=== PATIENT | male | born 1950 | race Caucasian/White ===

== ENCOUNTER → 2016-12-15 | Outpatient (CLI) | payer MEDICARE, OTHER ==
[2016-12-15 08:59] LABS: ALANINE AMINOTRANSFERASE 29 U/L (21-72); ALBUMIN 4.4 g/dL (3.5-5.0); ALKALINE PHOSPHATASE 72 U/L (38-126); ANION GAP 10 (5-19); ASPARTATE AMINO TRANSFERASE 22 U/L (17-59); BILIRUBIN,DIRECT 0.1 mg/dL (0.0-0.4); BILIRUBIN,TOTAL 0.8 mg/dL (0.2-1.3); BLOOD UREA NITROGEN 21 mg/dL (7-20); CALCIUM 10.3 mg/dL (8.4-10.2); CARBON DIOXIDE 31 mmol/L (22-30); CHLORIDE 103 mmol/L (98-107); CHOLESTEROL 143.87 mg/dL (0-200); CREATININE RESULT 0.91 mg/dL (0.52-1.25); Direct HDL 51 mg/dL (>40); GLUCOSE 122 mg/dL (75-110); POTASSIUM 4.9 mmol/L (3.6-5.0); SODIUM 144.1 mmol/L (137-145); TRIGLYCERIDES 57 mg/dL (<150)
[2016-12-15 09:10] LABS: DIRECT LDL 73 mg/dL (<100)
== END ==
LOC: OD 08:01
PROVIDERS: ATTEND Internal Medicine Cardiovascular Disease
DX: E78.00 Pure hypercholesterolemia, unspecified (principal); Z79.899 Other long term (current) drug therapy
CPT/HCPCS: 36415; 80048; 80061; 80076

== ENCOUNTER → 2017-03-17 | Outpatient (CLI) | payer MEDICARE, OTHER ==
[2017-03-17 10:06] LABS: ANION GAP 11 (5-19); BLOOD UREA NITROGEN 26 mg/dL (7-20); CALCIUM 9.9 mg/dL (8.4-10.2); CARBON DIOXIDE 27 mmol/L (22-30); CHLORIDE 101 mmol/L (98-107); CHOLESTEROL 158.32 mg/dL (0-200); CREATININE RESULT 0.88 mg/dL (0.52-1.25); Direct HDL 45 mg/dL (>40); GLUCOSE 101 mg/dL (75-110); POTASSIUM 4.8 mmol/L (3.6-5.0); SODIUM 139.1 mmol/L (137-145); TRIGLYCERIDES 131 mg/dL (<150)
[2017-03-17 10:17] LABS: DIRECT LDL 86 mg/dL (<100)
== END ==
LOC: OD 08:35
PROVIDERS: ATTEND Internal Medicine Cardiovascular Disease
DX: R73.01 Impaired fasting glucose (principal); E78.00 Pure hypercholesterolemia, unspecified; Z79.899 Other long term (current) drug therapy
CPT/HCPCS: 36415; 80048; 80061; 83036

== ENCOUNTER → 2017-04-10 | Outpatient (CLI) | payer MEDICARE, OTHER | LOC: RAD 15:50 | PROVIDERS: ATTEND Orthopaedic Surgery | DX: M25.512 Pain in left shoulder (principal); Z53.8 Procedure and treatment not carried out for other reasons ==

== ENCOUNTER → 2017-05-02 | Day surgery (SDC) | payer MEDICARE, OTHER ==
--- NOTE | 2017-05-02 15:10 | RADIOLOGY REPORT (SQ) ---
EXAM DESCRIPTION: FLUORO/NEEDLE PLACEMENT; ARTHRO SHOULDER INJECTION COMPLETED DATE/TIME: 05/02/2017 1:21 pm REASON FOR STUDY: IMPINGEMENT SYDROME OF LEFT SHOULDER M75.42 IMPINGEMENT SYNDROME OF LEFT SHOULDER COMPARISON: None. FLUOROSCOPY TIME: 18 seconds 2 digital radiographic images saved to PACS. LIMITATIONS: None. PROCEDURE: Procedure, risks, benefits and alternative explained to patient who then gave written con sent. The posterior left shoulder was marked and a time-out was called for correct marking verificat ion. Posterior entry site marked using fluoroscopic guidance. Shoulder prepped and draped using virgie rile technique. Local anesthesia achieved using 1% lidocaine injection. 22 gauge spinal needle intro duced into the joint space under direct fluoroscopic visualization. Non-ionic contrast instilled to confirm intra-articular position. Additional dilute non-ionic contrast instilled. Needle removed an d entry site covered with sterile bandage. No immediate complications noted. TECHNIQUE: Digital images acquired during fluoroscopy and stored on PACS. Patient immediately take n to the CT suite for additional imaging. INJECTION LOCATION: Posterior left glenohumeral joint CONTRAST TYPE AND AMOUNT: 1 mL of Isovue-300 was injected to confirm intra-articular needle placement followed by 10 mL of dilute Isovue-[address] arthrogram IMPRESSION: SUCCESSFUL NEEDLE PLACEMENT AND INJECTION FOR LEFT SHOULDER CT ARTHROGRAM USING POSTERIO R APPROACH. COMMENT: Quality ID [id number]: Final reports for procedures using fluoroscopy that document radiation exp osure indices, or exposure time and number of fluorographic images (if radiation exposure indices are not available) TECHNICAL DOCUMENTATION: JOB ID: [id number] [employer]- All Rights Reserved
--- NOTE | 2017-05-02 15:33 | RADIOLOGY REPORT (SQ) ---
EXAM DESCRIPTION: CT LT UPPER EXTREMITY WITH COMPLETED DATE/TIME: 05/02/2017 1:23 pm REASON FOR STUDY: IMPINGEMENT SYNDROME OF LEFT SHOULDER M75.42 IMPINGEMENT SYNDROME OF LEFT SHOULDE R COMPARISON: None. TECHNIQUE: Axial imaging performed through the leftshoulder with reformatted oblique coronal and obl ique sagittal imaging windowed for bone and soft tissues. All CT scanners at this facility use dose modulation, iterative reconstruction, and/or weight based d osing when appropriate to reduce radiation dose to as low as reasonably achievable (ALARA). [facility]: Dose Right [facility]: CareDose [facility]: Dose Right [facility]: Teradose 4D [facility]: [employer] Technologies RADIATION DOSE: Up-to-date CT equipment and radiation dose reduction techniques were employed. CTDIv ol: 9.4 mGy. DLP: 212 mGy-cm. mGy. LIMITATIONS: None. FINDINGS: SOFT TISSUES: Unremarkable BONY ARCHITECTURE: No lytic or blastic lesions. Normal density of the bone. No fracture. GLENOHUMERAL JOINT: No malalignment. Very mild humeral head chondromalacia. No subcortical cysts. ACROMION AND AC JOINT: Type 2 acromion with mild acromioclavicular joint bony spurring best shown on sagittal image 44. This causes mild narrowing of the subacromial space. ROTATOR CUFF: Normal thickness. No leakage of contrast from the glenohumeral joint into the subacrom ial/subdeltoid bursa. GLENOID, LABRUM AND BICEPS: Intact OTHER: 4 to 5 mm shrapnel fragments along the superficial aspect of the scapular wing axial image 41. Visualized left upper lobe, left ribs intact. IMPRESSION: Acromioclavicular joint bony spurring, causing mild narrowing of the subacromial space TECHNICAL DOCUMENTATION: JOB ID: [id number] Quality ID # [id number]: Final reports with documentation of one or more dose reduction techniques (e.g., Au tomated exposure control, adjustment of the mA and/or kV according to patient size, use of iterative reconstruction technique) 2010 [employer]- All Rights Reserved
== END ==
LOC: RAD 12:36
PROVIDERS: ATTEND Orthopaedic Surgery
PROC: BP09ZZZ Plain Radiography of Left Shoulder (ICD-10-PCS; principal; 2017-05-02)
DX: M75.42 Impingement syndrome of left shoulder (principal)
CPT/HCPCS: 23350; 77002

== ENCOUNTER 2017-05-22 15:54 | Emergency (ER) | payer MEDICARE, OTHER ==
--- NOTE | 2017-05-22 16:47 | ER Document Report ---
HPI - HPI Pain Level: 5 Notes: Patient is a 67-year-old male who presents the ED status post crush injury prior to arrival. Patient states that the lenz of his car came down on his right forearm and was pinched for about 20 seconds. Patient states that he has noticed bruising and a small cut on his posteromedial Distal forearm. Patient states that he still able to move his fingers in his hands but does have occasional tingling in the hands. Patient states that he did bleed a little bit from the cut, but that has since resolved. The pain does not radiate otherwise. Patient states that he takes a baby aspirin daily. Denies any diabetes history. Denies any drug allergies. Denies any other significant past medical history. Denies any headache, fever, head injury, neck pain, chest pain, palpitations, syncope, cough, shortness of breath, wheeze, dyspnea, abdominal pain, nausea/vomiting/diarrhea, muscle paralysis/weakness, or rash. - ROS Notes: REVIEW OF SYSTEMS: CONSTITUTIONAL : Denies fever, chills, or sweats. Denies recent illness. EENT: Denies eye, ear, throat, or mouth pain or symptoms. Denies nasal or sinus congestion or discharge. Denies throat, tongue, or mouth swelling or difficulty swallowing. CARDIOVASCULAR: Denies chest pain. Denies palpitations or racing or irregular heart beat. Denies ankle edema. RESPIRATORY: Denies cough, cold, or chest congestion. Denies shortness of breath, difficulty breathing, or wheezing. GASTROINTESTINAL: Denies abdominal pain or distention. Denies nausea, vomiting , or diarrhea. Denies blood in vomitus, stools, or per rectum. Denies black, tarry stools. Denies constipation. GENITOURINARY: Denies difficulty urinating, painful urination, burning, frequency, blood in urine, or discharge. MUSCULOSKELETAL: see hpi SKIN: Denies rash, lesions or sores. NEUROLOGICAL: Denies confusion or altered mental status. Denies passing out or loss of consciousness. Denies dizziness or lightheadedness. Denies headache. Denies weakness or paralysis or loss of use of either side. Denies problems with gait or speech. Denies sensory loss, numbness, or tingling. ALL OTHER SYSTEMS REVIEWED AND NEGATIVE. Dictation was performed using [employer] ([employer]) recognition software - DERM Skin Color: Normal Past Medical History - Social History Smoking Status: Unknown if Ever Smoked Family History: Reviewed & Not Pertinent - Past Medical History Cardiac Medical History: Denies: Hx Heart Attack, Hx Hypertension Pulmonary Medical History: Reports: Hx Asthma Neurological Medical History: Denies: Hx Cerebrovascular Accident, Hx Seizures Renal/ Medical History: Denies: Hx Peritoneal Dialysis GI Medical History: Denies: Hx Hepatitis, Hx Hiatal Hernia, Hx Ulcer Infectious Medical History: Denies: Hx Hepatitis Past Surgical History: Reports: Hx Open Heart Surgery - 2 stents. Denies: Hx Pacemaker - Immunizations Hx Diphtheria, Pertussis, Tetanus Vaccination: No Vertical Provider Document - CONSTITUTIONAL Agree With Documented VS: Yes Notes: PHYSICAL EXAMINATION: GENERAL: Well-appearing, well-nourished and in no acute distress. LUNGS: Breath sounds clear to auscultation bilaterally and equal. No wheezes rales or rhonchi. HEART: Regular rate and rhythm without murmurs, rubs, gallops. Musculoskeletal: Rt forearm/wrist/hand: FROM to passive/active. Strength 4+/5. + ecchymosis to the forearm ant/post with a small 0.4cm superficial laceration/ puncture to the posterolateral distal forearm. No active bleeding. No abscess, induration, streaks. + tenderness to distal forearm. No hand/finger tenderness. Pt able to move fingers w/o difficulty. N/V intact distal with 2+ pulse. Extremities: No cyanosis, clubbing, or edema b/l. Peripheral pulses 2+. Capillary refill less than 3 seconds. NEUROLOGICAL: Normal speech, normal gait. Normal sensory, motor exams PSYCH: Normal mood, normal affect. SKIN: Warm, Dry, normal turgor, no rashes or lesions noted. - INFECTION CONTROL TRAVEL OUTSIDE OF THE [place] IN LAST 30 DAYS: No Course - Re-evaluation Re-evalutation: 05/22/17 17:54 Patient is an afebrile, well-hydrated, 67-year-old male who presents the ED with a contusion to his forearm and a very superficial 0.4 cm laceration to his distal posterolateral forearm. XR unremarkable for any acute fx or dislocation. Vitals are stable. PE otherwise unremarkable for any neurovascular compromise. Low suspicion for any compartment syndrome, foreign body, sepsis, septic joint, or fracture. Patient is aware that his condition can change from initial presentation and he needs to monitor symptoms closely and seek medical attention if any acute changes. The wound was cleaned and dressed appropriately. A small amount of Dermabond and one Steri-Strip was placed over the wound leaving a small open site for any discharge. Sling provided. Recheck with your PCM this week. Return to the ED with any worsening /concerning symptoms otherwise as reviewed discharge. Patient is in agreement. Discharge - Discharge Clinical Impression: Contusion of forearm, right Qualifiers: Encounter type: initial encounter Qualified Code(s): S50.11XA - Contusion of right forearm, initial encounter Condition: Stable Disposition: HOME, SELF-CARE Instructions: Antibiotic Ointment Protection ([facility]), Laceration Care ([facility]), Soap Cleansing ([facility]), Tetanus Immunization Given ([facility]) Additional Instructions: Rest, Ice, Compression, Elevation Use sling as directed Tylenol/ibuprofen as needed Light stretches daily Keep wound clean, wash with soap and water after 24 hours, no submersion until wound is healed Strength exercises as able Moist heat may help F/u with your PCP in 2-3 days for a recheck Consider consult(s) with Orthopedics/physical therapy for ongoing/worsening symptoms Return to the ED with any worsening symptoms and/or development of fever, headache, chest pain, palpitations, syncope, shortness of breath, trouble breathing, abdominal pain, n/v/d, muscle weakness/paralysis, numbness/tingling, swelling, redness, or other worsening symptoms that are concerning to you. Referrals: [facility] ([facility]) [Provider Group] - Follow up as needed
--- NOTE | 2017-05-22 17:10 | RADIOLOGY REPORT (SQ) ---
EXAM DESCRIPTION: FOREARM RIGHT COMPLETED DATE/TIME: 05/22/2017 5:01 pm REASON FOR STUDY: crush injury COMPARISON: None. NUMBER OF VIEWS: Two views. TECHNIQUE: Two radiographic images acquired of the right forearm, including elbow and wrist in at le ast one projection. LIMITATIONS: None. FINDINGS: MINERALIZATION: Normal. BONES: No acute fracture. No worrisome bone lesions. SOFT TISSUES: No obvious swelling or foreign body. OTHER: No other significant finding. IMPRESSION: NEGATIVE STUDY OF THE RIGHT FOREARM. NO RADIOGRAPHIC EVIDENCE OF ACUTE INJURY. TECHNICAL DOCUMENTATION: JOB ID: [id number] [employer]- All Rights Reserved
[2017-05-22] MEDS ORDERED: DIPH/PERTUSS(ACELL)/TETANUS VAC/PF 0.5 ML SYR (>=10YO) IM ONE (17:25)
[2017-05-22 18:07] VITALS: BP 147/76
== END 2017-05-22 18:32 | disposition home or self-care (01) ==
LOC: ER 15:54
PROC: 0HQDXZZ Repair Right Lower Arm Skin, External Approach (ICD-10-PCS; principal; 2017-05-22)
DX: S51.811A Laceration without foreign body of right forearm, initial encounter (principal); W20.8XXA Other cause of strike by thrown, projected or falling object, initial encounter; Y93.89 Activity, other specified; R20.2 Paresthesia of skin; J45.909 Unspecified asthma, uncomplicated; Z98.61 Coronary angioplasty status; Z79.82 Long term (current) use of aspirin
CPT/HCPCS: 90471; 90715; 99283

== ENCOUNTER → 2017-06-26 | Outpatient (CLI) | payer MEDICARE, OTHER ==
[2017-06-26 09:35] LABS: CHOLESTEROL 172.65 mg/dL (0-200); Direct HDL 49 mg/dL (>40); TRIGLYCERIDES 91 mg/dL (<150)
[2017-06-26 09:46] LABS: DIRECT LDL 99 mg/dL (<100)
== END ==
LOC: OD 07:55
PROVIDERS: ATTEND Internal Medicine Cardiovascular Disease
DX: E78.00 Pure hypercholesterolemia, unspecified (principal)
CPT/HCPCS: 36415; 80061

== ENCOUNTER → 2017-09-27 | Outpatient (CLI) | payer MEDICARE, OTHER ==
[2017-09-27 09:05] LABS: CHOLESTEROL 157.16 mg/dL (0-200); TRIGLYCERIDES 52 mg/dL (<150)
[2017-09-27 09:16] LABS: DIRECT LDL 81 mg/dL (<100)
== END ==
LOC: OD 07:48
PROVIDERS: ATTEND Internal Medicine Cardiovascular Disease
DX: E78.00 Pure hypercholesterolemia, unspecified (principal)
CPT/HCPCS: 36415; 80061

== ENCOUNTER 2017-12-09 11:27 | Emergency (ER) | payer MEDICARE, OTHER ==
[2017-12-09] MEDS ORDERED: LIDOCAINE 1% INJ-PF (10 MG/ML) 30 ML SDV ONE (12:02)
[2017-12-09] MEDS ORDERED: LIDOCAINE 1.5% INJ-MPF (15 MG/ML) 20 ML AMPUL INJ ONE (12:26)
[2017-12-09] MEDS ORDERED: LIDOCAINE 1% INJ-PF (10 MG/ML) 30 ML SDV INJ ONE (12:34)
--- NOTE | 2017-12-09 12:35 | ER Document Report ---
ED Hand/Wrist Injury - General Chief Complaint: Hand Injury Stated Complaint: LEFT HAND INJURY Time Seen by Provider: 12/09/17 11:43 Notes: 67-year-old male. Was working on a ladder. Got his finger stuck between the ladder and the gutter. Had partial degloving injury of the ring finger on the left hand. No other major injuries. Up-to-date on his tetanus. Still maintains sensation. Denies any other complaints at this time. TRAVEL OUTSIDE OF THE [place] IN LAST 30 DAYS: No - HPI Injury to: Ring finger Onset: Just prior to arrival Where: Home Timing: Constant Quality of pain: Achy Severity: Moderate Pain Level: 2 Context: Laceration. denies: Became dizzy/fainted - Related Data Allergies/Adverse Reactions: No Known Allergies Allergy (Verified 05/22/17 16:17) Past Medical History - General Information source: Patient - Social History Smoking Status: Former Smoker Cigarette use (# per day): No Chew tobacco use (# tins/day): No Frequency of alcohol use: None Drug Abuse: None Lives with: Spouse/Significant other Family History: Reviewed & Not Pertinent Patient has suicidal ideation: No Patient has homicidal ideation: No - Past Medical History Cardiac Medical History: Reports: Hx Hypercholesterolemia Denies: Hx Heart Attack, Hx Hypertension Pulmonary Medical History: Reports: Hx Asthma Neurological Medical History: Denies: Hx Cerebrovascular Accident, Hx Seizures Renal/ Medical History: Denies: Hx Peritoneal Dialysis GI Medical History: Denies: Hx Hepatitis, Hx Hiatal Hernia, Hx Ulcer Infectious Medical History: Denies: Hx Hepatitis Past Surgical History: Reports: Hx Open Heart Surgery - 2 stents. Denies: Hx Pacemaker - Immunizations Hx Diphtheria, Pertussis, Tetanus Vaccination: No Review of Systems - Review of Systems Constitutional: denies: Fever, Malaise, Weakness Cardiovascular: denies: Heart racing, Dyspnea, Syncope, Dizziness Respiratory: denies: Cough, Short of breath, Wheezing Gastrointestinal: denies: Abdominal pain, Diarrhea, Nausea, Vomiting Musculoskeletal: See HPI, Other - Finger laceration, finger pain Skin: See HPI, Other - Laceration Physical Exam - Vital signs Vitals: Temp Pulse Resp BP Pulse Ox 98.3 F 67 18 164/89 H 93 12/09/17 11:32 12/09/17 11:32 12/09/17 11:32 12/09/17 11:32 12/09/17 11:32 Interpretation: Normal - General General appearance: Appears well, Alert - Respiratory Respiratory status: No respiratory distress Chest status: Nontender Breath sounds: Normal Chest palpation: Normal - Cardiovascular Rhythm: Regular Heart sounds: Normal auscultation Murmur: No - Extremities General upper extremity: Tender, Normal ROM, Other - Patient has degloving/ partial degloving injury to the fourth digit of the left hand. Ring was still on. Ring cutter was used to remove the ring. No obvious tendon defects are appreciated at this time but does have significant soft tissue injury with partial degloving. Sensation is intact. Completely circumferential. No: Edema General lower extremity: No: Mychal's sign Course - Re-evaluation Re-evalutation: 12/09/17 12:48 X-ray does not reveal any significant fractures. Digital block will be performed. Will attempt to close the skin. Patient may have tendon injury which will need to be seen by or so later. If unable to close the skin may consult with Orth O however I believe at this time I can repair this near degloving injury and send patient home. Patient is not requiring any pain medication at this time. - Vital Signs Vital signs: Temp Pulse Resp BP Pulse Ox 98.3 F 67 18 164/89 H 93 12/09/17 11:32 12/09/17 11:32 12/09/17 11:32 12/09/17 11:32 12/09/17 11:32 Procedures - Laceration/Wound Repair Left 4th digit Wound length (cm): 6 Wound's Depth, Shape: Into muscle, Irregular, Contused tissue Laceration pre-procedure: Betadine prep applied, Shur-Clens applied Anesthetic type: 1% Lidocaine Volume Anesthetic (mLs): 20 Wound explored: No foreign body removed Irrigated w/ Saline (mLs): 1,500 Wound Debrided: Moderate Wound Repaired With: Sutures Suture Size/Type: 4:0, Prolene Number of Sutures: 30 Layer Closure?: No Post-procedure wound care: Sterile dressing applied Notes: 12/09/17 14:34 This was a degloving injury of the fourth digit on the left hand. Completely circumferential held on at the distal aspect of the digit. Still maintained neurovascular status. Capillary refill was intact both during and after procedure. A tourniquet was applied at the risk for blood loss control. Frequent release of tourniquet performed to provide adequate oxygenation of tissue. The laceration was extensive and complex. Will need close follow-up and orthopedic care. Discharge - Discharge Clinical Impression: Degloving injury of finger Qualifiers: Encounter type: initial encounter Qualified Code(s): S61.209A - Unspecified open wound of unspecified finger without damage to nail, initial encounter Condition: Good Disposition: HOME, SELF-CARE Instructions: Laceration Care ([facility]), Antibiotic Ointment Protection ([facility]), Oral Narcotic Medication ([facility]) Additional Instructions: This will be very important to have a wound check done tomorrow. Please return to the emergency department for repeat evaluation and dressing change. Use pain medication as instructed. Please complete course of antibiotics as instructed. Please follow-up with orthopedic surgery for evaluation of wound. In the event that you develop redness, worsening pain, color change to your finger or any other concerns please return immediately. Prescriptions: Amox Tr/Potassium Clavulanate [Augmentin 875-125 Tablet] 1 tab PO BID 10 Days tablet Hydrocodone/Acetaminophen [[place] 5-325 mg Tablet] 2 tab PO TID PRN 2 Days #12 tab PRN Reason: Ondansetron [Zofran Odt 4 mg Tablet] 1 - 2 tab PO Q4H PRN #15 tab.rapdis PRN Reason: For Nausea/Vomiting Referrals: INNA MEJIAS MD [ASSOCIATE] - Follow up in 3-5 days VANNESA MEJIAS DO [ACTIVE STAFF] - Follow up in 3-5 days
--- NOTE | 2017-12-09 14:00 | RADIOLOGY REPORT (SQ) ---
EXAM DESCRIPTION: FINGER LEFT COMPLETED DATE/TIME: 12/09/2017 12:32 pm REASON FOR STUDY: injury COMPARISON: None. NUMBER OF VIEWS: Three views. TECHNIQUE: AP, lateral, and oblique images acquired of the left fourth finger. LIMITATIONS: External bandage. FINDINGS: MINERALIZATION: Normal. BONES: No acute fracture or dislocation. No worrisome bone lesions. SOFT TISSUES: Punctate calcified densities overlying soft tissues of the proximal phalanx. OTHER: No other significant finding. IMPRESSION: Punctate foreign bodies. No fracture. COMMENT: SITE OF TRAUMA/COMPLAINT MARKED/STAMP COMPLETED: YES. TECHNICAL DOCUMENTATION: JOB ID: [id number] [employer]- All Rights Reserved Reading location - IP/workstation name: [email or web address]
[2017-12-09] MEDS ORDERED: ONDANSETRON HCL 8 MG TABLET PO PRN (14:32)
[2017-12-09] MEDS ORDERED: AMOXICILLIN TR/POT CLAVULANATE 500-125 MG TAB PO ONE (14:32)
[2017-12-09] MEDS ORDERED: HYDROCODONE/ACETAMINOPHEN 5-325 MG TABLET PO ONE (14:33)
[2017-12-09 15:13] VITALS: BP 150/79
== END 2017-12-09 15:10 | disposition home or self-care (01) ==
LOC: ER 11:27
PROC: 0HQGXZZ Repair Left Hand Skin, External Approach (ICD-10-PCS; principal; 2017-12-09)
DX: S61.209A Unspecified open wound of unspecified finger without damage to nail, initial encounter (principal); W23.1XXA Caught, crushed, jammed, or pinched between stationary objects, initial encounter; E78.00 Pure hypercholesterolemia, unspecified
CPT/HCPCS: 99283; 73140; 12002; A9270 ×2; J3490

== ENCOUNTER 2017-12-10 07:32 | Emergency (ER) | payer MEDICARE, OTHER ==
[2017-12-10 07:39] VITALS: BP 138/78
--- NOTE | 2017-12-10 08:13 | ER Document Report ---
ED Wound - General Chief Complaint: Wound Recheck Stated Complaint: WOUND CHECK Time Seen by Provider: 12/10/17 08:09 Notes: The patient is a 67-year-old male who presents for a wound recheck of his right 4th finger degloving injury that was sutured yesterday in the emergency room. He denies fevers, drainage from the wound, numbness or tingling. TRAVEL OUTSIDE OF THE [place] IN LAST 30 DAYS: No - Related Data Allergies/Adverse Reactions: No Known Allergies Allergy (Verified 12/10/17 07:35) Past Medical History - General Information source: Patient - Social History Smoking Status: Unknown if Ever Smoked Family History: Reviewed & Not Pertinent Patient has suicidal ideation: No Patient has homicidal ideation: No - Past Medical History Cardiac Medical History: Reports: Hx Hypercholesterolemia Denies: Hx Heart Attack, Hx Hypertension Pulmonary Medical History: Reports: Hx Asthma Neurological Medical History: Denies: Hx Cerebrovascular Accident, Hx Seizures Renal/ Medical History: Denies: Hx Peritoneal Dialysis GI Medical History: Denies: Hx Hepatitis, Hx Hiatal Hernia, Hx Ulcer Infectious Medical History: Denies: Hx Hepatitis Past Surgical History: Reports: Hx Open Heart Surgery - 2 stents. Denies: Hx Pacemaker - Immunizations Hx Diphtheria, Pertussis, Tetanus Vaccination: No Review of Systems - Review of Systems Notes: REVIEW OF SYSTEMS: CONSTITUTIONAL: -fevers, -chills MUSCULOSKELETAL: -back pain, -neck pain SKIN: +finger sutures NEUROLOGICAL: -altered mental status or loss of consciousness, -headache, - neurologic symptoms ALL OTHER SYSTEMS REVIEWED AND NEGATIVE. Physical Exam - Vital signs Vitals: Temp Pulse Resp BP Pulse Ox 98.0 F 63 18 138/78 H 95 12/10/17 07:38 12/10/17 07:38 12/10/17 07:38 12/10/17 07:38 12/10/17 07:38 - Notes Notes: PHYSICAL EXAMINATION: GENERAL: Well-appearing, well-nourished and in no acute distress. HEAD: Atraumatic, normocephalic. EXTREMITIES: Left 4th finger laceration with multiple sutures. No drainage. Swelling of finger with brisk capillary refill. Able to flex and extend finger. Small ooze from wound. Sensation intact. No cyanosis. NEUROLOGICAL: Normal speech, normal gait. Normal sensory and motor exams. PSYCH: Normal mood, normal affect. Course - Re-evaluation Re-evalutation: Patient's wound has no signs of infection. Very small amount of oozing from the wound, but this resolves with pressure. Dressing changed. Sensation is intact. He has an appointment with a hand surgeon tomorrow. Given strict return precautions and he understands. - Vital Signs Vital signs: Temp Pulse Resp BP Pulse Ox 98.0 F 63 18 138/78 H 95 12/10/17 07:38 12/10/17 07:38 12/10/17 07:38 12/10/17 07:38 12/10/17 07:38 Discharge - Discharge Clinical Impression: Encounter for re-check of laceration wound Condition: Stable Disposition: HOME, SELF-CARE Additional Instructions: Continue the medications as prescribed. You must follow-up with orthopedics tomorrow. Return to the ER if you notice redness, fevers or any drainage from the wound. Forms: Elevated Blood Pressure Referrals: VANNESA MEJIAS DO [ACTIVE STAFF] - Follow up as needed
== END 2017-12-10 08:32 | disposition home or self-care (01) ==
LOC: ER 07:32
DX: S61.215D Laceration without foreign body of left ring finger without damage to nail, subsequent encounter (principal); W11.XXXD Fall on and from ladder, subsequent encounter; J45.909 Unspecified asthma, uncomplicated
CPT/HCPCS: 99282

== ENCOUNTER → 2018-01-17 | Outpatient (CLI) | payer MEDICARE, OTHER ==
[2018-01-17 08:30] LABS: ALANINE AMINOTRANSFERASE 34 U/L (21-72); ALBUMIN 4.3 g/dL (3.5-5.0); ALKALINE PHOSPHATASE 71 U/L (38-126); ANION GAP 10 (5-19); ASPARTATE AMINO TRANSFERASE 24 U/L (17-59); BILIRUBIN,DIRECT 0.3 mg/dL (0.0-0.4); BILIRUBIN,TOTAL 0.6 mg/dL (0.2-1.3); BLOOD UREA NITROGEN 18 mg/dL (7-20); CALCIUM 10.1 mg/dL (8.4-10.2); CARBON DIOXIDE 32 mmol/L (22-30); CHLORIDE 104 mmol/L (98-107); CHOLESTEROL 120.79 mg/dL (0-200); GLUCOSE 97 mg/dL (75-110); POTASSIUM 5.5 mmol/L (3.6-5.0); SODIUM 145.6 mmol/L (137-145); TOTAL PROTEIN 6.9 g/dL (6.3-8.2); TRIGLYCERIDES 50 mg/dL (<150)
[2018-01-17 08:41] LABS: DIRECT LDL 42 mg/dL (<100)
== END ==
LOC: OD 07:16
PROVIDERS: ATTEND Internal Medicine Cardiovascular Disease
DX: E78.00 Pure hypercholesterolemia, unspecified (principal); I10 Essential (primary) hypertension; Z79.899 Other long term (current) drug therapy
CPT/HCPCS: 36415; 80048; 80061; 80076

== ENCOUNTER → 2018-08-15 | Outpatient (CLI) | payer MEDICARE, OTHER ==
[2018-08-15 08:40] LABS: CHOLESTEROL 124.66 mg/dL (0-200); TRIGLYCERIDES 56 mg/dL (<150)
[2018-08-15 08:43] LABS: ALANINE AMINOTRANSFERASE 27 U/L (21-72); ALBUMIN 4.4 g/dL (3.5-5.0); ALKALINE PHOSPHATASE 81 U/L (38-126); ANION GAP 13 (5-19); ASPARTATE AMINO TRANSFERASE 28 U/L (17-59); BILIRUBIN,DIRECT 0.3 mg/dL (0.0-0.4); BILIRUBIN,TOTAL 0.6 mg/dL (0.2-1.3); BLOOD UREA NITROGEN 17 mg/dL (7-20); CALCIUM 10.1 mg/dL (8.4-10.2); CARBON DIOXIDE 29 mmol/L (22-30); CHLORIDE 101 mmol/L (98-107); GLUCOSE 103 mg/dL (75-110); POTASSIUM 5.3 mmol/L (3.6-5.0); SODIUM 142.5 mmol/L (137-145); TOTAL PROTEIN 7.1 g/dL (6.3-8.2)
[2018-08-15 08:52] LABS: DIRECT LDL 78 mg/dL (<100)
== END ==
LOC: OD 07:06
PROVIDERS: ATTEND Internal Medicine Cardiovascular Disease
DX: I25.119 Atherosclerotic heart disease of native coronary artery with unspecified angina pectoris (principal); E78.00 Pure hypercholesterolemia, unspecified; I10 Essential (primary) hypertension; Z79.899 Other long term (current) drug therapy
CPT/HCPCS: 36415; 80048; 80061; 80076

== ENCOUNTER → 2018-11-21 | Outpatient (CLI) | payer MEDICARE, OTHER ==
[2018-11-21 08:51] LABS: ANION GAP 8 (5-19); BLOOD UREA NITROGEN 19 mg/dL (7-20); CALCIUM 10.4 mg/dL (8.4-10.2); CARBON DIOXIDE 32 mmol/L (22-30); CHLORIDE 102 mmol/L (98-107); GLUCOSE 99 mg/dL (75-110)
== END ==
LOC: OD 07:19
PROVIDERS: ATTEND Internal Medicine Cardiovascular Disease
DX: I10 Essential (primary) hypertension (principal); Z79.899 Other long term (current) drug therapy
CPT/HCPCS: 36415; 80048

== ENCOUNTER → 2018-12-12 | Outpatient (CLI) | payer MEDICARE, OTHER ==
[2018-12-12 08:47] LABS: ANION GAP 10 (5-19); BLOOD UREA NITROGEN 16 mg/dL (7-20); CALCIUM 10.3 mg/dL (8.4-10.2); CARBON DIOXIDE 32 mmol/L (22-30); CHLORIDE 98 mmol/L (98-107); GLUCOSE 112 mg/dL (75-110); POTASSIUM 3.9 mmol/L (3.6-5.0); SODIUM 139.6 mmol/L (137-145)
== END ==
LOC: OD 07:12
PROVIDERS: ATTEND Internal Medicine Cardiovascular Disease
DX: I10 Essential (primary) hypertension (principal); E87.5 Hyperkalemia; Z79.899 Other long term (current) drug therapy
CPT/HCPCS: 36415; 80048

== ENCOUNTER → 2019-02-07 | Outpatient (CLI) | payer MEDICARE, OTHER ==
[2019-02-07 08:30] LABS: ALANINE AMINOTRANSFERASE 32 U/L (21-72); ALBUMIN 4.2 g/dL (3.5-5.0); ALKALINE PHOSPHATASE 77 U/L (38-126); ANION GAP 11 (5-19); ASPARTATE AMINO TRANSFERASE 26 U/L (17-59); BILIRUBIN,DIRECT 0.4 mg/dL (0.0-0.4); BLOOD UREA NITROGEN 17 mg/dL (7-20); CALCIUM 10.4 mg/dL (8.4-10.2); CARBON DIOXIDE 31 mmol/L (22-30); CHLORIDE 101 mmol/L (98-107); CHOLESTEROL 143.52 mg/dL (0-200); GLUCOSE 108 mg/dL (75-110); POTASSIUM 5.5 mmol/L (3.6-5.0); SODIUM 142.5 mmol/L (137-145); TRIGLYCERIDES 104 mg/dL (<150)
[2019-02-07 08:40] LABS: DIRECT LDL 72 mg/dL (<100)
[2019-02-07 17:09] LABS: ANION GAP 12 (5-19); BLOOD UREA NITROGEN 18 mg/dL (7-20); CALCIUM 10.3 mg/dL (8.4-10.2); CARBON DIOXIDE 29 mmol/L (22-30); CHLORIDE 101 mmol/L (98-107); GLUCOSE 84 mg/dL (75-110); SODIUM 141.6 mmol/L (137-145)
[2019-02-07 17:14] LABS: POTASSIUM 4.1 mmol/L (3.6-5.0)
== END ==
LOC: OD 07:05
PROVIDERS: ATTEND Internal Medicine Cardiovascular Disease
DX: E87.5 Hyperkalemia (principal); E78.00 Pure hypercholesterolemia, unspecified; I10 Essential (primary) hypertension; Z79.899 Other long term (current) drug therapy
CPT/HCPCS: 36415; 80048; 80061; 80076

== ENCOUNTER → 2019-03-15 | Outpatient (CLI) | payer MEDICARE, OTHER ==
[2019-03-15 07:13] LABS: ANION GAP 11 (5-19); BLOOD UREA NITROGEN 18 mg/dL (7-20); CALCIUM 9.9 mg/dL (8.4-10.2); CARBON DIOXIDE 29 mmol/L (22-30); CHLORIDE 101 mmol/L (98-107); GLUCOSE 107 mg/dL (75-110); POTASSIUM 4.1 mmol/L (3.6-5.0); SODIUM 140.9 mmol/L (137-145)
== END ==
LOC: LAB 06:37
PROVIDERS: ATTEND Internal Medicine Cardiovascular Disease
DX: I10 Essential (primary) hypertension (principal); E87.5 Hyperkalemia; Z79.899 Other long term (current) drug therapy
CPT/HCPCS: 36415; 80048

== ENCOUNTER → 2019-06-13 | Outpatient (CLI) | payer MEDICARE, OTHER ==
[2019-06-13 07:53] LABS: ALBUMIN 4.2 g/dL (3.5-5.0); ALKALINE PHOSPHATASE 72 U/L (38-126); ANION GAP 7 (5-19); ASPARTATE AMINO TRANSFERASE 23 U/L (17-59); BILIRUBIN,DIRECT 0.2 mg/dL (0.0-0.4); BILIRUBIN,TOTAL 0.8 mg/dL (0.2-1.3); BLOOD UREA NITROGEN 21 mg/dL (7-20); CARBON DIOXIDE 30 mmol/L (22-30); CHLORIDE 104 mmol/L (98-107); CHOLESTEROL 117.08 mg/dL (0-200); GLUCOSE 112 mg/dL (75-110); POTASSIUM 4.3 mmol/L (3.6-5.0); TOTAL PROTEIN 6.8 g/dL (6.3-8.2); TRIGLYCERIDES 73 mg/dL (<150)
[2019-06-13 08:04] LABS: DIRECT LDL 69 mg/dL (<100)
== END ==
LOC: LAB 07:17
PROVIDERS: ATTEND Physician Assistant
DX: E78.00 Pure hypercholesterolemia, unspecified (principal); I10 Essential (primary) hypertension; Z79.899 Other long term (current) drug therapy
CPT/HCPCS: 36415; 80048; 80061; 80076

== ENCOUNTER → 2019-09-14 | Outpatient (CLI) | payer MEDICARE, OTHER ==
[2019-09-14 08:53] LABS: ALBUMIN 4.1 g/dL (3.5-5.0); ALKALINE PHOSPHATASE 79 U/L (38-126); ANION GAP 8 (5-19); ASPARTATE AMINO TRANSFERASE 27 U/L (17-59); BILIRUBIN,DIRECT 0.2 mg/dL (0.0-0.4); BILIRUBIN,TOTAL 0.5 mg/dL (0.2-1.3); BLOOD UREA NITROGEN 18 mg/dL (7-20); CALCIUM 10.1 mg/dL (8.4-10.2); CARBON DIOXIDE 32 mmol/L (22-30); CHLORIDE 97 mmol/L (98-107); CHOLESTEROL 124.89 mg/dL (0-200); GLUCOSE 106 mg/dL (75-110); POTASSIUM 4.8 mmol/L (3.6-5.0); TRIGLYCERIDES 51 mg/dL (<150)
[2019-09-14 09:04] LABS: DIRECT LDL 74 mg/dL (<100)
== END ==
LOC: LAB 07:36
PROVIDERS: ATTEND Physician Assistant
DX: E78.00 Pure hypercholesterolemia, unspecified (principal); I10 Essential (primary) hypertension; E87.5 Hyperkalemia; Z79.899 Other long term (current) drug therapy
CPT/HCPCS: 36415; 80048; 80061; 80076; 83036

== ENCOUNTER → 2019-12-20 | Outpatient (CLI) | payer MEDICARE, OTHER ==
[2019-12-20 08:13] LABS: ALBUMIN 4.7 g/dL (3.5-5.0); ALKALINE PHOSPHATASE 80 U/L (38-126); ASPARTATE AMINO TRANSFERASE 28 U/L (17-59); BILIRUBIN,DIRECT 0.2 mg/dL (0.0-0.4); BILIRUBIN,TOTAL 0.6 mg/dL (0.2-1.3); CHOLESTEROL 149.91 mg/dL (0-200); TOTAL PROTEIN 7.6 g/dL (6.3-8.2); TRIGLYCERIDES 51 mg/dL (<150)
[2019-12-20 08:24] LABS: DIRECT LDL 84 mg/dL (<100)
== END ==
LOC: OD 07:07
PROVIDERS: ATTEND Internal Medicine Cardiovascular Disease
DX: E78.00 Pure hypercholesterolemia, unspecified (principal); Z79.899 Other long term (current) drug therapy
CPT/HCPCS: 36415; 80061; 80076

== ENCOUNTER → 2020-06-11 | Outpatient (CLI) | payer MEDICARE, OTHER ==
[2020-06-11 08:53] LABS: ALBUMIN 4.5 g/dL (3.5-5.0); ALKALINE PHOSPHATASE 70 U/L (38-126); ANION GAP 10 (5-19); ASPARTATE AMINO TRANSFERASE 27 U/L (17-59); BILIRUBIN,DIRECT 0.2 mg/dL (0.0-0.4); BILIRUBIN,TOTAL 0.9 mg/dL (0.2-1.3); BLOOD UREA NITROGEN 21 mg/dL (7-20); CALCIUM 9.7 mg/dL (8.4-10.2); CARBON DIOXIDE 29 mmol/L (22-30); CHLORIDE 98 mmol/L (98-107); CHOLESTEROL 124.24 mg/dL (0-200); GLUCOSE 104 mg/dL (75-110); POTASSIUM 4.7 mmol/L (3.6-5.0); TOTAL PROTEIN 7.1 g/dL (6.3-8.2); TRIGLYCERIDES 95 mg/dL (<150)
[2020-06-11 09:04] LABS: DIRECT LDL 59 mg/dL (<100)
== END ==
LOC: OD 07:09
PROVIDERS: ATTEND Internal Medicine Cardiovascular Disease
DX: E78.00 Pure hypercholesterolemia, unspecified (principal); I10 Essential (primary) hypertension; E87.5 Hyperkalemia; Z79.899 Other long term (current) drug therapy
CPT/HCPCS: 36415; 80048; 80061; 80076

== ENCOUNTER → 2020-10-07 | Outpatient (CLI) | payer OTHER, MEDICARE ==
[2020-10-07 08:47] LABS: ALBUMIN 4.5 g/dL (3.5-5.0); ALKALINE PHOSPHATASE 65 U/L (38-126); ANION GAP 7 (5-19); ASPARTATE AMINO TRANSFERASE 29 U/L (17-59); BILIRUBIN,DIRECT 0.2 mg/dL (0.0-0.4); BILIRUBIN,TOTAL 0.7 mg/dL (0.2-1.3); BLOOD UREA NITROGEN 22 mg/dL (7-20); CARBON DIOXIDE 31 mmol/L (22-30); CHLORIDE 98 mmol/L (98-107); GLUCOSE 107 mg/dL (75-110); POTASSIUM 4.8 mmol/L (3.6-5.0); TOTAL PROTEIN 7.3 g/dL (6.3-8.2); TRIGLYCERIDES 56 mg/dL (<150)
[2020-10-07 08:59] LABS: DIRECT LDL 51 mg/dL (<100)
== END ==
LOC: OD 07:04
PROVIDERS: ATTEND Internal Medicine Cardiovascular Disease
DX: E78.00 Pure hypercholesterolemia, unspecified (principal); I10 Essential (primary) hypertension; Z79.899 Other long term (current) drug therapy
CPT/HCPCS: 36415; 80048; 80061; 80076